=== PATIENT | female | born 1975 | race Two or more races ===

== ENCOUNTER 2017-07-08 04:46 | Inpatient (IN) | payer OTHER ==
[~2017-07-08] VITALS: Ht 152.4 cm; Wt 2.7 kg
[~2017-07-08 04:46] MED LIST: DOLOGESIC CAPSU1 CAP PO; PREVACID; PROTONIX40 M1 PO; SEPTRA DS TABLE1 TAB PO; ZIRTEC
[2017-07-08] MEDS ORDERED: PRENATAL 19 TA1 EAC1 PO (07:34)
[2017-07-08] MEDS ORDERED: IRON18 MG PO (07:35)
[2017-07-08] MEDS ORDERED: NIFE60TA3 PO (07:36)
[2017-07-08] MEDS ORDERED: ZANTAC150 MG PO (07:37)
== END 2017-07-11 14:23 | DRG 766 ==
LOC: OB/GYN 04:46 → LDR 04:46 → O/R 09:00 → OB/GYN 10:16 → SURG-SUITE 15:04
PROVIDERS: Specialist
PROC: 0UL70ZZ Occlusion of Bilateral Fallopian Tubes, Open Approach (ICD-10-PCS; 2017-07-08)
PROC: 4A1HXCZ Monitoring of Products of Conception, Cardiac Rate, External Approach (ICD-10-PCS; 2017-07-08)
PROC: 10D00Z1 Extraction of Products of Conception, Low, Open Approach (ICD-10-PCS; principal; 2017-07-08 07:00)
DX: O82 Encounter for cesarean delivery without indication (principal); Z37.0 Single live birth; Z3A.38 38 weeks gestation of pregnancy; Z30.2 Encounter for sterilization; O99.013 Anemia complicating pregnancy, third trimester

== ENCOUNTER 2020-01-25 09:43 | Outpatient (CLI) | payer OTHER ==
[~2020-01-25 09:43] MED LIST changes: +IRON18 MG PO; +NIFE60TA3 PO; +PRENATAL 19 TA1 EAC1 PO; +ZANTAC150 MG PO
== END 2020-01-25 11:30 | disposition home or self-care (01) ==
LOC: OFIC 805 09:43
PROVIDERS: ATTEND Otolaryngology Otology & Neurotology
DX: H92.03 Otalgia, bilateral (principal); J31.0 Chronic rhinitis; K21.0 Gastro-esophageal reflux disease with esophagitis; J02.8 Acute pharyngitis due to other specified organisms

== ENCOUNTER 2024-06-27 17:21 | Emergency (ER) | payer OTHER ==
[~2024-06-27] VITALS: Ht 152.4 cm; Wt 53.5 kg
[2024-06-27] MEDS ORDERED: KETOROLAC TROMETHAMINE 60 MG VIAL IM ONE (22:15)
[2024-06-27 23:52] LABS: HEMATOCRIT 34.8 % (36.0-45.00); HEMOGLOBIN 11.3 g/dL (12.0-15.00); MEAN CELL VOLUME 78.5 fL (80.00-100.00); MEAN CORPUSCULAR HEMOGLOBIN 25.5 pg (27.00-32.0); MEAN CORPUSCULAR HGB CONC 32.5 g/dl (32.0-36.0); PLATELET COUNT 391 K/uL (150-450); RED BLOOD COUNT 4.44 M/uL (4.00-6.00); RED CELL DISTRIBUTION WIDTH 15.2 % (11.5-14.5)
[2024-06-28 00:05] LABS: CALCIUM 9.1 mg/dL (8.5-10.1); CREATININE SERUM 0.75 mg/dL (0.55-1.02); GFR 81.79; POTASSIUM 3.59 mEq/L (3.5-5.1)
[2024-06-28 00:49] LABS: PH,URINE 5.5 (5.0-8.0); URINE APPEARANCE Clear; URINE BILIRRUBIN Negative (NEGATIVE); URINE BLOOD Negative; URINE COLOR Yellow; URINE GLUCOSE Negative (NEGATIVE); URINE KETONE Negative (NEGATIVE); URINE LEUKOCYTE Negative; URINE NITRATE Negative; URINE PROTEIN Negative (NEGATIVE); URINE UROBILINOGEN 0.2 E.U./dl
[2024-06-28 00:52] LABS: URINE BACTERIA 540.9 uL (0.0-1933); URINE RBC 8.2 uL (0.0-20.8); URINE WBC 5.3 uL (0.0-23.2)
[2024-06-28 01:25] LABS: URINE CAST 0.14 uL (0.0-1.40)
== END 2024-06-28 02:01 | disposition home or self-care (01) ==
LOC: ER 17:23
PROVIDERS: Preventive Medicine Public Health & General Preventive Medicine
DX: M54.50 Low back pain, unspecified (principal); K58.8 Other irritable bowel syndrome; K21.9 Gastro-esophageal reflux disease without esophagitis; J45.909 Unspecified asthma, uncomplicated; D25.9 Leiomyoma of uterus, unspecified; Z86.018 Personal history of other benign neoplasm

== ENCOUNTER 2025-04-30 13:43 | Emergency (ER) | payer OTHER ==
[~2025-04-30] VITALS: Ht 152.4 cm; Wt 57.2 kg
[2025-04-30] MEDS ORDERED: FAMOTIDINE/PF 20 MG in 0.9 % SODIUM CHLORIDE 8 ML IV PUSH ONE (16:00)
[2025-04-30] MEDS ORDERED: 0.9 % SODIUM CHLORIDE 1,000 ML IV SCH (16:00)
[2025-04-30] MEDS ORDERED: KETOROLAC TROMETHAMINE 15 MG VIAL IU ONE (16:00)
[2025-04-30] MEDS ORDERED: ACETAMINOPHEN 500 MG GEL..CAP PO ONE (16:00)
[2025-04-30 18:18] LABS: BASO % 0.6 % (0.1-1.2); EOS # 0.42 (0.04-0.54); EOS % 6.3 % (0.7-7.0); LYMPH # 2.72 (1.18-3.74); LYMPH % 40.6 % (19.3-53.1); MEAN PLATELET VOLUME 9.20 fl (9.4-12.4); MONO # 0.57 (0.24-0.82); MONO % 8.5 % (4.7-12.5); NEUT # 2.94 (1.56-6.13); NEUT % 43.9 % (34.0-71.1); RED CELL DISTRIBUTION WIDTH 13.9 % (11.6-14.4)
[2025-04-30 18:44] LABS: INR 0.99
[2025-04-30 18:49] LABS: ALT/SGPT 17 U/L (12-78); AST/SGOT 11 U/L (15-37); BILIRUBIN TOTAL 0.32 mg/dL (0.3-1.2); BUN CREA RATIO 16 (7.0-25.0); CREATININE SERUM 0.76 mg/dL (0.55-1.02); GFR 80.23; GLOBULINA 3.5 G/DL (2.4-3.5); GLUCOSE FASTING 87 mg/dL (65-100); OSMOLALITY SERUM 280 MOSM/KG (275-295)
[2025-04-30 18:51] LABS: HCG QUANTITATIVE < 1 mUI/mL (1-3)
[2025-04-30 18:53] LABS: URINE APPEARANCE Clear; URINE BILIRRUBIN Negative (NEGATIVE); URINE BLOOD Negative; URINE COLOR Yellow; URINE GLUCOSE Negative (NEGATIVE); URINE KETONE Negative (NEGATIVE); URINE LEUKOCYTE Negative; URINE NITRATE Negative; URINE PROTEIN Negative (NEGATIVE); URINE UROBILINOGEN 0.2 E.U./dl
[2025-04-30 18:57] LABS: URINE BACTERIA 37.1 uL (0.0-1933); URINE EPITHELIAL CELLS 9.6 uL (0.0-38.8)
[2025-04-30 19:09] LABS: URINE CAST 0.00 uL (0.0-1.40); URINE RBC 1.0 uL (0.0-20.8); URINE WBC 0.9 uL (0.0-23.2)
== END 2025-04-30 23:00 | disposition home or self-care (01) ==
LOC: ER 13:44
PROVIDERS: General Practice
DX: K52.9 Noninfective gastroenteritis and colitis, unspecified (principal); M54.50 Low back pain, unspecified; R10.9 Unspecified abdominal pain; Z91.013 Allergy to seafood